=== PATIENT | female | born 1955 | race Caucasian/White ===

== ENCOUNTER 2019-12-03 05:57 | Day surgery (SDC) | payer MEDICARE ==
[~2019-12-03] VITALS: Ht 167.6 cm; Wt 112.0 kg
[~2019-12-03 05:57] MED LIST: ACET325 PO; ASPI81CH PO; CENTRUM SILVER1 EAC2 PO; CRUTCH3 USE; DULO60; ESTR2; GABA300 PO; HYDACE5325 PO; HYDCHL25 PO; IBUP800 PO; IRBE150 PO; LAMO100 PO; LOSA50 PO; MELO7.5 PO; NAPR500 PO; NAPR550 PO; NEOPOLHCSU LEFTEAR; OXYACE5T PO; PHENY100ER; PHENY100ER PO; PRENATAL TABLE1 EAC2 PO; SULTRIDS PO; TOPI50 PO; [UNRECOGNIZED DRUG - REMARK]
--- NOTE | 2019-12-03 11:30 | NUR ---
pt arrived to room after surgery on own bed, daughter accompanying, postop vs commenced and stable
--- NOTE | 2019-12-03 13:54 | NUR ---
pt able to wiggle her toes, unable to lift leg. provided report to PT, who will check back in one hour.
--- NOTE | 2019-12-03 17:48 | NUR ---
SHIFT SUMMARY PODO FOR L TKA WITH SPINAL ANESTHESIA. PT AO4. VSS. PT REPORTS NUMBNESS ON BLE DENIES TINGLING SENSATION. PT DENIES CHEST PAIN/PRESSURE, SOB, AND DENIES DIZZINESS. PT TOLERATING DINNER MEAL AND PO MEDS WELL. PT DENIES NAUSEA AND VOMITING. PT DENIES PASSING FLATUS. BOWEL TONES PRESENT. ADEQUATE URINE OUTPUT OF 450ML IN BEDPAN AFTER HER ARRIVAL FROM PACU. 18 GUAGE IV ON R FOREARM. PAIN IS WELL CONTROLLED WITH TORADOL 15MG, RAFA 10MG AND TYLENOL.
[2019-12-04 04:04] LABS: BASOPHILS ABSOLUTE AUTO 0.03 K/mm3 (0.00-0.23); BASOPHILS PERCENT AUTO 0 % (0-2); EOSINOPHILS ABSOLUTE AUTO 0.09 K/mm3 (0.00-0.68); EOSINOPHILS PERCENT AUTO 1 % (0-6); IMMATURE GRAN ABSOLUTE AUTO 0.02 K/mm3 (0.00-0.10); IMMATURE GRAN PERCENT AUTO 0 % (0-1); LYMPHOCYTES ABSOLUTE AUTO 1.51 K/mm3 (0.84-5.20); LYMPHOCYTES PERCENT AUTO 19 % (21-46); MONOCYTES ABSOLUTE AUTO 0.58 K/mm3 (0.16-1.47); MONOCYTES PERCENT AUTO 7 % (4-13); Mean Corpuscular HGB 28.3 pg (26.0-34.0); Mean Corpuscular HGB Conc 32.4 g/dL (31.5-36.5); Mean Corpuscular Volume 87 fL (80-100); Mean Platelet Volume 8.8 fL (9.1-12.4); NEUTROPHILS PERCENT AUTO 73 % (41-73); Platelet Count 210 K/mm3 (150-400); RDW Standard Deviation 41.3 fL (35.1-46.3); Red Blood Cell Count 3.89 M/mm3 (3.80-5.20); White Blood Cell Count 8.13 K/mm3 (4.00-11.30)
[2019-12-04 04:20] LABS: Bun/Creatinine Ratio 29.2 (12.0-20.0); Calcium, Blood 8.6 mg/dL (8.5-10.1); Creatinine, Blood 1.13 mg/dL (0.40-1.00); Magnesium, Blood 2.1 mg/dL (1.6-2.4); Potassium, Blood 3.6 mmol/L (3.5-5.5)
--- NOTE | 2019-12-04 15:15 | NUR ---
LOW BLOOD PRESSURE PT HAD LOW BP OF 88/50, UPON RECHECK IT WAS ONLY 95/53. PT REPORTS FEELING DIZZY AND NEEDING TO STOP WHEN AMBULATING. PT ALSO COMPLAINED OF ELEVATED PAIN. DR. BLANDON NOTIFIED OF CONCERNS BY PAL[place]IRA JOSEPH. DR. SINGH CONSULTED R/T LOW BP AND DIZZINESS. PT DRANK 800ML OF FLUIDS AND HAS BEEN ENCOURAGED TO CONTINUE DRINKING FLUIDS. WILL CONTINUE TO MONITOR.
--- NOTE | 2019-12-04 17:27 | NUR ---
RECHECK HYPOTENSIVE EPISODE PT GOT UP IN THE BATHROOM WITH JAKE QUINTERO. PT C/O DIZZINESS UPON GETTING UP, BLOOD PRESSURE WAS AT 95/60 MMHG. VITALS RECHECK AFTER SHE SAT BACK TO HER CHAIR, BP AT 109/60 MMHG, 61 HR WITH 99% SPO2 ON ROOM AIR. WILL CONTINUE TO FLUIDS AND MONITOR VITALS.
--- NOTE | 2019-12-05 00:01 | NUR ---
[facility]. I WENT BACK AND RECHARTED WHAT I COULD.
[2019-12-05 04:54] LABS: Hematocrit 34.3 % (33.0-51.0); Mean Corpuscular HGB 27.9 pg (26.0-34.0); Mean Corpuscular HGB Conc 32.1 g/dL (31.5-36.5); Mean Corpuscular Volume 87 fL (80-100); Platelet Count 226 K/mm3 (150-400); RDW Coefficient Variation 13.2 % (11.7-14.2); Red Blood Cell Count 3.94 M/mm3 (3.80-5.20); White Blood Cell Count 6.47 K/mm3 (4.00-11.30)
[2019-12-05 05:23] LABS: Bun/Creatinine Ratio 26.7 (12.0-20.0); Calcium, Blood 8.6 mg/dL (8.5-10.1); Creatinine, Blood 1.05 mg/dL (0.40-1.00); Potassium, Blood 3.3 mmol/L (3.5-5.5)
--- NOTE | 2019-12-05 07:29 | NUR ---
SUMMARY PT REPORTS IMPROVED MOBILITY TONIGHT DILAUDID PO PROVIDING BETTER PAIN CONTROL. DR LAFLEUR MADE ROUNDS THIS AM AND IS DISCHARGING PT TO HOME TODAY IF PT AGREES.
[2019-12-05] MEDS ORDERED: HYDMOR2 PO (12:53)
[2019-12-05] MEDS ORDERED: PROM25 PO (12:55)
[2019-12-05] MEDS ORDERED: SULTRIDS PO (12:58)
--- NOTE | 2019-12-05 13:20 | NUR ---
HCTZ HCTZ CONTINUED FOR HOME USE BY DR. BLANDON, CLARIFIED THAT THIS WOULD BY OK WITH DR. SINGH. HE SAID TO CONTINUE HCTZ AT HOME AND FOR PT TO NOT TAKE IF SHE BECAME DIZZY WHEN STANDING. WILL PROVIDE PT EDUCATION.
--- NOTE | 2019-12-05 15:05 | NUR ---
DISCHARGE PT PROVIDED WITH WRITTEN AND VERBAL DISCHARGE INSTRUCTIONS, SHE AND HER DAUGHTER REPORTED UNDERSTANDING INSTRUCTIONS. PT EDUCATED TO RESTART HCTZ TOMORROW BUT TO CHECK BP PRIOR TO RESTARTING MEDICATION. SHE WAS ALSO EDUCATED TO FOLLOW UP WITH HER PCP WITHIN A WEEK REGARDING BP MEDICATION. PT EDUCATED TO TAKE ASPIRIN 81MG TWICE PER DAY FOR 42 DAYS. PT DENIED DIZZINESS WITH AMBULATION. PT VOIDING AND TOLERATING PO WELL. PT ASSISTED OUT TO VEHICLE BY THIS RN.
== END 2019-12-05 14:49 | disposition home or self-care (01) ==
LOC: ORSCMMR 05:57 → ORD 07:30 → SURS 11:22 → ORSCMMR 12-05 14:49
PROVIDERS: Internal Medicine; Orthopaedic Surgery
PROC: 8E0YXBZ Computer Assisted Procedure of Lower Extremity (ICD-10-PCS; principal; 2019-12-03 07:30)
PROC: 0SRD0J9 Replacement of Left Knee Joint with Synthetic Substitute, Cemented, Open Approach (ICD-10-PCS; principal; 2019-12-03 07:30)
DX: M17.12 Unilateral primary osteoarthritis, left knee (principal); I10 Essential (primary) hypertension; E66.01 Morbid (severe) obesity due to excess calories; Z68.39 Body mass index [BMI] 39.0-39.9, adult; Z79.899 Other long term (current) drug therapy; Z79.82 Long term (current) use of aspirin
CPT/HCPCS: 36415; 73560-LT; 80048; 83735; 85025; 85027; 88300; 97110; 97112; 97116; 97162; 97530; A9270; A9270-GY; C1713; C1776; J0171; J0690; J0735; J1100; J1885; J2250; J2370; J2405; J2704; J2795; J3010; J3370; J7120

== ENCOUNTER → 2021-05-26 | Outpatient (CLI) | payer MEDICARE ==
[~2021-05-26] MED LIST changes: +HYDMOR2 PO; +PROM25 PO
[2021-05-26 12:52] LABS: Source, Urine Voided
[2021-05-26 13:54] LABS: Appearance, Urine Cloudy (Clear); Bilirubin, Urine Neg (Neg); Blood, Urine Neg (Neg); Color, Urine Yellow (P-Yellow); Glucose Qualitative, Urine Neg (Neg); Ketones, Urine Neg (Neg); Leukocyte Esterase, Urine 1+ (Neg); Nitrite, Urine Neg (Neg); Protein, Urine 1+ (Neg); Specific Gravity, Urine 1.025 (1.003-1.022); Urobilinogen, Urine NORM (Normal)
[2021-05-26 14:18] LABS: Bacteria Many /hpf; Hyaline Casts 0-2 /lpf (0-2); Red Blood Cells, Urine 0-2 /hpf (0-2); Squamous Epithelial Cells Mod /hpf (Few)
[2021-05-27 11:12] LABS: Candida species (DNA Probe) Negative (NEGATIVE); G. vaginalis (DNA Probe) Negative (NEGATIVE); T. vaginalis (DNA Probe) Negative (NEGATIVE)
[2021-05-28 03:08] LABS: CHLAMYDIA TRACHOMATIS, NAA Negative (Negative)
== END | disposition home or self-care (01) ==
LOC: LAB SHORT 08:54
PROVIDERS: Nurse Practitioner Family
DX: N89.8 Other specified noninflammatory disorders of vagina (principal)
CPT/HCPCS: 81001; 87086; 87480; 87510; 87660

== ENCOUNTER 2021-09-15 09:09 | Day surgery (SDC) | payer MEDICARE ==
[~2021-09-15] VITALS: Ht 170.2 cm; Wt 108.0 kg
== END 2021-09-15 12:25 | disposition home or self-care (01) ==
LOC: ORSCSDS 09:09
PROVIDERS: Surgery
PROC: 0DBN8ZX Excision of Sigmoid Colon, Via Natural or Artificial Opening Endoscopic, Diagnostic (ICD-10-PCS; principal; 2021-09-15 11:00)
DX: Z12.11 Encounter for screening for malignant neoplasm of colon (principal); K63.5 Polyp of colon; F41.9 Anxiety disorder, unspecified; F32.A Depression, unspecified; E78.5 Hyperlipidemia, unspecified; I10 Essential (primary) hypertension; G40.909 Epilepsy, unspecified, not intractable, without status epilepticus; E66.01 Morbid (severe) obesity due to excess calories; Z68.37 Body mass index [BMI] 37.0-37.9, adult; Z79.82 Long term (current) use of aspirin; Z79.899 Other long term (current) drug therapy
CPT/HCPCS: 88305; J2704; J7120

== ENCOUNTER 2023-05-18 06:10 | Day surgery (SDC) | payer OTHER ==
[~2023-05-18] VITALS: Ht 170.2 cm; Wt 114.6 kg
[2023-05-18] MEDS ORDERED: Lactated Ringer's 1,000 ML IV ONE ×2 (07:00→07:10)
[2023-05-18] MEDS ORDERED: CeFAZolin Sodium 2,000 MG VIAL ONE (07:10)
[2023-05-18] MEDS ORDERED: NS 50 ML IV ONE (07:11)
[2023-05-18] MEDS ORDERED: Ropivacaine 0.5% HCl/Pf 5 MG/ML 20ML VIAL ONE (07:18)
[2023-05-18] MEDS ORDERED: FentaNYL Citrate 50 MCG/ML 2 ML Injection ONE ×2 (07:20→09:02)
[2023-05-18] MEDS ORDERED: propofoL 20 ML IV ONE (07:20)
[2023-05-18] MEDS ORDERED: EPINEPhrine HCl 1 MG/ML 1ML Amp XX ONE (07:45)
[2023-05-18] MEDS ORDERED: Dexamethasone Sod Phos 10 MG/ML 1ML VIAL ONE (07:46)
[2023-05-18] MEDS ORDERED: Ondansetron HCl 2 MG / ML 2ML Vial ONE (08:20)
--- NOTE | 2023-05-18 09:05 | NUR ---
05/18/23 0905 TON BRADLEY PT WOKE UP, STATES SHE IS COLD (WARM BLANKETS GIVEN) AND PAIN 10/10 RIGHT ANKLE. STATES SHE JUST NEEDS TO SLEEP. DENIES NAUSEA
--- NOTE | 2023-05-18 09:20 | NUR ---
05/18/23 0920 TON BRADLEY PT STATES THAT SHE CAN TOLERATE PAIN BUT STATES THAT HER PAIN 11/21. PT TALKING WO DIFF. FLACC SCALE 06/21 I ASKED WHAT AMOUNT OF PAIN CAN SHE TOLERATE TO GO HOME ON BUT UNSURE WHAT SHE CAN GO HOME ON. -04/21. TALKED TO HER THAT WE CANNOT GET RID OF PAIN COMPLETELY.
[2023-05-18] MEDS ORDERED: HYDROcodone 5-APAP 325 TAB ONE ×2 (09:39→10:22)
[2023-05-18 09:47] VITALS: BP 132/77
== END 2023-05-18 11:06 | disposition home or self-care (01) ==
LOC: ORSCSDS 06:10
PROVIDERS: Podiatrist Foot & Ankle Surgery
PROC: 0SPF04Z Removal of Internal Fixation Device from Right Ankle Joint, Open Approach (ICD-10-PCS; principal; 2023-05-18 07:30)
DX: T84.84XA Pain due to internal orthopedic prosthetic devices, implants and grafts, initial encounter (principal); I10 Essential (primary) hypertension; E78.5 Hyperlipidemia, unspecified; R56.9 Unspecified convulsions; E66.01 Morbid (severe) obesity due to excess calories; Z68.39 Body mass index [BMI] 39.0-39.9, adult; Z79.899 Other long term (current) drug therapy
CPT/HCPCS: A9270; J0171; J0690; J1100; J2405; J2704; J2795; J3010; J7120

== ENCOUNTER 2024-04-28 08:32 | Emergency (ER) | payer OTHER ==
[~2024-04-28] VITALS: Ht 170.2 cm; Wt 111.1 kg
[2024-04-28 09:45] VITALS: BP 138/78
[2024-04-28] MEDS ORDERED: Ketorolac Tromethamine 30mg Vial IM ONE (10:40)
[2024-04-28] MEDS ORDERED: Diazepam 5 MG Tab PO ONE (11:00)
[2024-04-28] MEDS ORDERED: CYCL10 PO (11:06)
[2024-04-28] MEDS ORDERED: Percocet 5-3251 EACH PO (11:06)
[2024-04-28] MEDS ORDERED: IBU600 M1 PO (11:06)
== END 2024-04-28 11:11 | disposition home or self-care (01) ==
LOC: ER 08:32
DX: M25.552 Pain in left hip (principal); M25.551 Pain in right hip; M25.562 Pain in left knee; M25.561 Pain in right knee; M25.571 Pain in right ankle and joints of right foot; G40.909 Epilepsy, unspecified, not intractable, without status epilepticus; I10 Essential (primary) hypertension; Z88.1 Allergy status to other antibiotic agents; Z79.1 Long term (current) use of non-steroidal anti-inflammatories (NSAID); Z79.899 Other long term (current) drug therapy; Z59.89 Other problems related to housing and economic circumstances; W01.0XXA Fall on same level from slipping, tripping and stumbling without subsequent striking against object, initial encounter
CPT/HCPCS: 73522; 73562-LT; 73562-RT; 73610; 96372; 99283-25; A9270; J1885

== ENCOUNTER 2024-05-20 01:40 | Emergency (ER) | payer OTHER ==
[~2024-05-20] VITALS: Ht 167.6 cm; Wt 110.7 kg
[~2024-05-20 01:40] MED LIST changes: +CYCL10 PO; +IBU600 M1 PO; +Percocet 5-3251 EACH PO
[2024-05-20 02:11] VITALS: BP 138/78
== END 2024-05-20 04:25 | disposition home or self-care (01) ==
LOC: ER 01:40
DX: S01.01XA Laceration without foreign body of scalp, initial encounter (principal); Z59.89 Other problems related to housing and economic circumstances; W18.30XA Fall on same level, unspecified, initial encounter; I10 Essential (primary) hypertension; Z88.8 Allergy status to other drugs, medicaments and biological substances; Z79.899 Other long term (current) drug therapy; Z79.891 Long term (current) use of opiate analgesic; Z79.1 Long term (current) use of non-steroidal anti-inflammatories (NSAID)
CPT/HCPCS: 12002; 99282-25